=== PATIENT | female | born 1985 | race Caucasian/White ===

== ENCOUNTER 2019-05-13 16:30 | Outpatient (CLI) | payer MEDICARE, MEDICAID ==
--- NOTE | 2019-05-13 18:15 | RAD ---
SI JOINTS: 05/13/19 Three views. HISTORY: Sacroiliitis. SI joints appear open and symmetric. Nonspecific sclerosis is slightly more prominent on the iliac si de on the right. Sacrum is otherwise unremarkable. IMPRESSION: Nonspecific SI joint sclerosis. Slightly more prominent on the right. POS: [facility]
--- NOTE | 2019-05-13 18:18 | RAD ---
TWO VIEWS OF THE LUMBAR SPINE: 05/13/19 COMPARISON: None. HISTORY: Low back pain. FINDINGS: There is an exaggerated lumbar lordosis. There is facet hypertrophy at L4-5 and L5-S1. There is no a nterolisthesis or retrolisthesis. No acute fracture or evidence of dislocation. IMPRESSION: Exaggerated lumbar lordosis with lower lumbar spine facet hypertrophy. No acute fracture. POS: [facility]
--- NOTE | 2019-05-13 18:20 | RAD ---
SACRUM AND COCCYX: 05/13/19 Three views. HISTORY: Low back pain. Sacroiliitis. FINDINGS/IMPRESSION: Sacrum and coccyx appear intact with no focal osseous abnormality. Mild asymmetric sclerosis along the right SI joint. POS: [facility]
== END 2019-05-13 16:31 | disposition home or self-care (01) ==
LOC: BICRAD 16:30
PROVIDERS: ATTEND Internal Medicine
DX: M54.5 Low back pain (principal); M46.1 Sacroiliitis, not elsewhere classified; M40.56 Lordosis, unspecified, lumbar region; M53.3 Sacrococcygeal disorders, not elsewhere classified
CPT/HCPCS: 72100; 72202; 72220

== ENCOUNTER 2019-12-09 06:14 | Outpatient (CLI) | payer MEDICARE, MEDICAID, OTHER ==
[2019-12-09 13:30] LABS: BHCG - Serum Negative (NEGATIVE); Pregs Control Background? CLEAR/WHITE (CLR/WHITE); Pregs Control Bar Appear? YES (CONTROL BAR)
== END 2019-12-09 06:15 | disposition home or self-care (01) ==
LOC: LABBT 06:14
PROVIDERS: ATTEND Obstetrics & Gynecology
DX: Z01.812 Encounter for preprocedural laboratory examination (principal); R10.2 Pelvic and perineal pain; N93.9 Abnormal uterine and vaginal bleeding, unspecified; N94.6 Dysmenorrhea, unspecified; N92.0 Excessive and frequent menstruation with regular cycle
CPT/HCPCS: 84703

== ENCOUNTER 2019-12-13 07:53 | Day surgery (SDC) | payer MEDICARE, MEDICAID ==
[2019-12-09 11:51] VITALS: BMI 25.1
[2019-12-09 13:14] LABS: Hemoglobin 13.4 g/dL (12.0-16.0); Mean Corpuscular HGB CONC 33.9 g/dL (32.0-36.0); Mean Corpuscular Hemoglobin 36.7 pg (27.0-31.0); Mean Platelet Volume 8.5 fL (7.4-10.4); Platelet Count 158 thou/uL (130-400); RBC Distribution Width 12.5 % (11.5-14.5); Red Blood Cell (RBC) Count 3.66 mill/uL (4.20-5.40); White Blood Cell (WBC) Count 4.3 thou/uL (4.8-10.8)
[2019-12-09 13:27] LABS: Anion Gap 9 mmol/L (10-20); BUN (Urea Nitrogen) 10 mg/dL (7.0-18.7); Calc. Creatinine Clearance 0 mL/min (70-130); Calcium 9.5 mg/dL (7.8-10.44); Carbon Dioxide 29 mmol/L (22-29); Chloride 105 mmol/L (98-107); Estimated GFR-MDRD 89; Glucose 93 mg/dL (70-105); Potassium 4.3 mmol/L (3.5-5.1); Sodium 139 mmol/L (136-145)
[2019-12-09 18:37] LABS: SARS-CoV-2 MS2 Positive; SARS-CoV-2 N Gene Negative; SARS-CoV-2 S Gene Negative; SARS-CoV-2 orf1ab Negative
--- NOTE | 2019-12-13 08:01 | HP ---
HISTORY OF PRESENT ILLNESS: Ms. Pugh is a 34-year-old white female, G3, P3, with 3 vaginal deliveries, who has a history of an endometrial ablation with hysteroscopy procedure in 2017 for heavy menstrual bleeding. This was performed by Dr. Nieto at that time. She states she really has not had any improvement in her bleeding despite the ablation procedure. She was referred by her primary care physician, Dr. Mercer for increasing irregular menstrual bleeding, heavy flow and chronic pelvic pain that intensifies during her menstrual cycle. She has had a tubal ligation. 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 She has a seizure disorder secondary to the biopsy and the tumor, and she is on seizure medication for this with her last seizure being recorded in February 2018. She develops minimal left arm twitching as her focal seizure component. She is presently at [facility], being followed every 4 months with MRI and is currently on experimental medication. She also has a history of hypothyroidism and is followed by Endocrinology at [facility]. She was diagnosed with Minnie thyroiditis, then with Graves disease, and now has been stable on methimazole 5 mg daily. She currently lives with her parents and 3 children. PAST MEDICAL HISTORY: As per HPI, 1. Oligodendroglioma grade 2, diagnosed in September 2009. 2. Graves disease, diagnosed in 2018. 3. Minnie thyroiditis. 4. Anxiety, depression. 5. Allergic rhinitis. PAST SURGICAL HISTORY: 1. Tonsillectomy. 2. Tubal ligation. 3. D and C, hysteroscopy with endometrial ablation in 2016. SOCIAL HISTORY: No alcohol or tobacco use. No illicit drug use. CURRENT MEDICATIONS: 1. Keppra 750 mg extended-release 2 in the a.m. and 3 in the p.m. 2. Duloxetine 60 mg tablet daily. 3. Methimazole 5 mg tablet daily. 4. Clonazepam 1 mg p.o. p.r.n. 5. Fluticasone nasal spray as directed. 6. Her study drug is olaparib 150 mg 2 tablets b.i.d. PHYSICAL EXAMINATION: GENERAL: The patient is alert and oriented. CHEST: Clear to auscultation. HEART: Regular rate and rhythm. S1 and S2 heart sounds. No murmurs, rubs, or gallops. ABDOMEN: Soft, nontender, nondistended with no palpable masses. BREASTS: No breast masses, nipple discharge, or skin changes. PELVIC: Vulva and vagina had no lesions. Cervix had no lesions. Pap smear obtained in my office on October 25, 2019, was negative for HPV and normal cells were noted. Uterus was somewhat mildly enlarged and tender on palpation. Adnexa were nontender with no masses. She did have an endometrial biopsy at that visit. It sounded to 8 cm with 2 passes. The biopsy was benign with benign proliferative endometrial changes. DIAGNOSTIC IMAGING: The patient had an ultrasound of the pelvis in my office on 10/24, showing her uterus to measure 9 x 5.4 x 6 cm. Endometrial thickness was 9.23 mm. Normal-appearing left and right ovaries were noted. ASSESSMENT: This is a 34-year-old white female, G3, P3, with prior endometrial ablation with continued menorrhagia and painful menstrual cycles and chronic pelvic pain. Clinical findings are consistent with adenomyosis of the uterus. The patient also with history of oligodendroglioma of the brain, currently being managed well with experimental drug from [facility]. The patient is desiring definitive surgical therapy. PLAN: Plan is to proceed with robotic TLH with bilateral salpingectomy on December 12. Risks and benefits of procedure were discussed in detail. She is set for surgery. Job ID: [id number]
[2019-12-13] MEDS ORDERED: Gabapentin 300 MG CAP ONE (08:22)
[2019-12-13] MEDS ORDERED: Famotidine/PF 20 mg/2ml Vial ONE ×2 (08:22→09:48)
[2019-12-13] MEDS ORDERED: CeleCOXIB 100 MG CAP ONE (08:22)
[2019-12-13] MEDS ORDERED: SUGAMMADEX SODIUM 200 MG/2 ML VIAL ONE (09:48)
[2019-12-13] MEDS ORDERED: Fentanyl 100 MCG/2 ML VIAL ONE (09:48)
[2019-12-13] MEDS ORDERED: Meperidine HCl/PF 25 MG/ML VIAL ONE (09:48)
[2019-12-13] MEDS ORDERED: Bupivacaine PF 0.5% 30 ML VIAL ONE (09:49)
[2019-12-13] MEDS ORDERED: Lidocaine 1% w/Epinephrine 1:100K 20 ML VIAL ONE (09:49)
[2019-12-13] MEDS ORDERED: Midazolam HCl 2 mg/2 ml Vial ONE (09:56)
[2019-12-13] MEDS ORDERED: Metoclopramide HCl 10 MG/2 ML VIAL ONE (10:03)
[2019-12-13] MEDS ORDERED: PROPOFOL 200 MG/20 ML VIAL ONE (10:03)
[2019-12-13] MEDS ORDERED: Vecuronium 10 MG VIAL ONE (10:03)
[2019-12-13] MEDS ORDERED: Ondansetron PF 4 MG/2 ML Vial ONE (10:03)
[2019-12-13] MEDS ORDERED: Lidocaine 1% PF 5 ML VIAL ONE (10:03)
[2019-12-13] MEDS ORDERED: Promethazine HCl 25 MG/ML VIAL SLOW IVP PRN (11:49)
[2019-12-13] MEDS ORDERED: Promethazine HCl 25 MG/ML VIAL IM PRN ×2 (11:49→13:28)
[2019-12-13] MEDS ORDERED: Ondansetron HCl/PF 4 MG/2 ML Vial IVP PRN (11:49)
[2019-12-13] MEDS ORDERED: Bisacodyl 10 MG SUPP PR PRN (13:28)
[2019-12-13] MEDS ORDERED: Morphine 4 MG/ML VIAL SLOW IVP PRN (13:28)
[2019-12-13] MEDS ORDERED: traMADol HCl 50 MG TAB PO PRN ×2 (13:28)
[2019-12-13] MEDS ORDERED: Ondansetron PF 4 MG/2 ML Vial IVP PRN (13:28)
[2019-12-13] MEDS ORDERED: Zolpidem Tartrate 5 MG TAB PO PRN (13:28)
[2019-12-13] MEDS ORDERED: Simethicone Chewable 80 MG TAB PO PRN (13:28)
[2019-12-13] MEDS ORDERED: Acetaminophen 325 MG TAB PO PRN (13:28)
[2019-12-13] MEDS ORDERED: diphenhydrAMINE 25 MG CAP PO PRN (13:28)
[2019-12-13] MEDS: Ketorolac Tromethamine 30 MG/ML VIAL IVP SCH ×2 (14:34→20:36)
[2019-12-13] MEDS: Sodium Chloride 0.9% 1,000 ML IV SCH ×2 (14:35→21:07)
--- NOTE | 2019-12-13 19:36 | OP ---
DATE OF PROCEDURE: 12/13/2019 PREOPERATIVE DIAGNOSES: 1. A 34-year-old white female, G3, P3. 2. Prior endometrial ablation and tubal ligation with continued menorrhagia, pelvic pain, and dysmenorrhea. 3. Uterine myoma. 4. Suspect adenomyosis of the uterus. POSTOPERATIVE DIAGNOSES: 1. A 34-year-old white female, G3, P3. 2. Prior endometrial ablation and tubal ligation with continued menorrhagia, pelvic pain, and dysmenorrhea. 3. Uterine myoma. 4. Suspect adenomyosis of the uterus. PROCEDURES PERFORMED: Robotic total laparoscopic hysterectomy with bilateral salpingectomy. SALES [employer] MARKETING AGENT SURGEON: Rosa Nobles PA-C ANESTHESIA: General endotracheal. FINDINGS: 1. Normal bilateral ovaries and fallopian tubes with previous tubal ligation noted. 2. Boggy appearing uterus with a 1.5 x 1.5 subserosal uterine myoma noted. 3. Clear urine present in Hicks catheter postprocedure and bilateral ureteral peristalsis visualized postprocedure. ANTIBIOTICS: 2 g Ancef on-call to OR. PATHOLOGY: Uterus, cervix, and bilateral fallopian tubes. COUNTS: Correct x2. COMPLICATIONS: None. DISPOSITION: To recovery room, stable. DESCRIPTION OF PROCEDURE: The patient previously received informed consent in regard to surgery. She was taken back to the operating room, where she received a general endotracheal anesthetic agent without complications. She was placed in dorsal lithotomy position with Owen stirrups, prepped and draped in usual sterile fashion. Hicks catheter was placed. At this time, a side-arm speculum was placed in the vagina. Anterior lip of cervix was grasped with single-tooth tenaculum. The uterus sounded to 9 cm. A size 8 cm DK uterine manipulator with a 4.0 cervical cup was placed in usual fashion. Tenaculum and speculum were removed. Attention was then turned to the abdomen, where perspective trocar sites were infiltrated 0.5% Marcaine with epinephrine. A 12 mm supraumbilical incision was made. Veress needle was entered into the peritoneal cavity, and the patient's pressure was noted to be less than 5 mmHg. The abdomen was insufflated with the patient's pressure of 15, approximately 4.5 L of carbon dioxide gas. A size 12 mm trocar was then placed in the supraumbilical incision. Then, the laparoscope was introduced through the trocar sleeve confirming proper entry. At this time, the patient was placed in Trendelenburg position in a bilateral 8 mm operative approach. Trocars were placed under laparoscopic guidance along with an 11 mm right upper quadrant printing bindery assistant port. The robot was then docked. I then broke scrub and proceeded to carry out the surgery from the operative console while my assistants remained at the bedside. The uterus was elevated from the pelvis by my printing bindery assistant. The bilateral fallopian tubes were visualized with the previously mentioned findings. The left fimbria was grasped by my printing bindery assistant with atraumatic grasper. I then coagulated the nasal salpinx with bipolar fenestrated cautery, and then this was transected with monopolar scissors. The remaining tube was brought out through the right upper quadrant printing bindery assistant port. The left uterine ovarian ligament was coagulated and transected. Serial coagulation of broad ligament going down to the round ligament was coagulated and transected. The anterior leaf of the broad ligament was then entered creating the vesicouterine peritoneum. This was dissected off the cervix in a layering technique both sharply and bluntly. Uterine vessels were skeletonized, and they were coagulated in the internal cervical os region. This was carried out in likewise fashion on the patient's right side with the right fallopian tube was removed in similar fashion along with the right utero-ovarian ligament being coagulated and transected. Serial coagulation of the broad ligament hugging close to uterine specimen was carried out until the right round ligament was reached. It was coagulated and transected, and the anterior leaf of the broad ligament was entered. In a layering technique, dissecting the vesicouterine peritoneum past the cervical vaginal margin. The uterine vessels again on the right side were skeletonized. They were coagulated in the internal cervical os region. Then, performed the posterior colpotomy starting from the 6 o'clock to 3 o'clock position and 6 o'clock to 9 o'clock position with monopolar scissors. The anterior colpotomy was then completed from 12 o'clock to 3 o'clock and 12 o'clock to 9 o'clock, coagulated the uterine vessels meticulously during the colpotomy process. The specimen was then removed through the vaginal vault. I switched the monopolar scissors with a Alexandre needle courtesy driver. The vaginal cuff was coagulated of any remaining oozing areas with the bipolar fenestrated cautery. A Stratafix suture was then brought in, and full layer thickness closure at the vagina was carried out starting the right angle across the midline to the left angle back toward the midline. The suture was remaining suture was brought out through the right upper quadrant port. We irrigated the pedicle sites with suction irrigation. Hemostasis was confirmed. The robot was then undocked, and then proceeded to close the trocar site. A deep stitch of 0 Vicryl in [id number] stitch fashion was placed in the umbilical trocar site. The remainder of the trocar sites were closed with 4-0 Monocryl subcuticular fashion and Dermabond. The vaginal vault was checked and was noted to be hemostatic with sponge stick and clear urine was draining from the Hicks catheter. The patient was awakened from anesthesia transferred to recovery room in stable condition. Job ID: [id number]
[2019-12-13] MEDS ORDERED: levETIRAcetam 500 MG TAB PO SCH ×2 (21:00→22:00)
[2019-12-13] MEDS ORDERED: Lacosamide 50 mg Tablet PO SCH ×2 (21:00→22:00)
[2019-12-14] MEDS: Ketorolac Tromethamine 30 MG/ML VIAL IVP SCH (02:31)
[2019-12-14] MEDS: Sodium Chloride 0.9% 1,000 ML IV SCH ×2 (03:34→08:21)
[2019-12-14] MEDS: Ibuprofen 800 MG TAB PO SCH ×2 (03:35→08:18)
[2019-12-14 06:33] LABS: Hemoglobin 12.5 g/dL (12.0-16.0); Mean Corpuscular HGB CONC 34.1 g/dL (32.0-36.0); Mean Platelet Volume 8.8 fL (7.4-10.4); Platelet Count 139 thou/uL (130-400); RBC Distribution Width 12.5 % (11.5-14.5); Red Blood Cell (RBC) Count 3.37 mill/uL (4.20-5.40); White Blood Cell (WBC) Count 7.8 thou/uL (4.8-10.8)
[2019-12-14 07:57] VITALS: BP 114/57; TEMP 98.1
--- NOTE | 2019-12-14 08:29 | PDOC.EVN ---
Event Note - Event Note Event Note: Tolerating diet. Ambulating. Voiding. Minimal pain. o:T98.1 BP 114/57 P75 O2 sat 99% RA U/o 1900 ml ADOMEN is soft/non distended. Trochar sites c/d/i.. A/P: Post op day 1 from robotic tlh. Doing well. D/c home today. F/u pathology. RTC 2 and 6 weeks. tramadol rx sent in for pain.
[2019-12-14] MEDS ORDERED: levETIRAcetam 500 MG TAB PO SCH ×2 (09:00→21:00)
[2019-12-14] MEDS ORDERED: Methimazole 5 MG TAB PO SCH (09:00)
[2019-12-14] MEDS ORDERED: DULoxetine 60 MG CAP PO SCH (09:00)
[2019-12-14] MEDS ORDERED: Lacosamide 50 mg Tablet PO SCH ×2 (09:00→21:00)
--- NOTE | 2019-12-15 01:59 | DIS ---
DATE OF ADMISSION: 12/13/2019 DATE OF DISCHARGE: 12/14/2019 DIAGNOSES: Dysmenorrhea, menorrhagia, uterine fibroid, prior endometrial ablation, history of presumed adenomyosis of the uterus. PROCEDURES PERFORMED: Robotic total laparoscopic hysterectomy and bilateral salpingectomy. SUMMARY OF HOSPITAL COURSE: Ms. Pugh is a 34-year-old white female, who has a history of slow-growing malignant brain tumor astrocytoma, who has been managed with chemo and radiation for approximately 10 years. She has had a history of an endometrial ablation performed by Dr. Nieto back in 2017, for menorrhagia. She has had recurrence of heavy bleeding and chronic pelvic pain along with severe dysmenorrhea over the past year and have proceeded with definitive surgical therapy. She underwent a robotic TLH on 12/12. She has done well postoperatively. She is ambulating, voiding, and tolerating regular diet and has minimal pain, the morning postop day one. Vital signs are stable. Hematocrit is 36.6%. Pathology is pending at the time of discharge. She will be discharged home to resume her maintenance medications for seizure disorder due to brain tumor history and was also given tramadol 50 mg q.6 hours p.r.n. pain and suggested using [id number] ibuprofen and Tylenol for mild pain. Job ID: [id number]
== END 2019-12-14 13:40 | disposition home or self-care (01) ==
LOC: SDC 07:53 → 3SW 13:22 → SDC 12-14 13:40
PROVIDERS: ATTEND Obstetrics & Gynecology
PROC: 0UT94ZZ Resection of Uterus, Percutaneous Endoscopic Approach (ICD-10-PCS; principal; 2019-12-13)
PROC: 0UT74ZZ Resection of Bilateral Fallopian Tubes, Percutaneous Endoscopic Approach (ICD-10-PCS; 2019-12-13)
DX: D25.2 Subserosal leiomyoma of uterus (principal); N84.0 Polyp of corpus uteri; N72 Inflammatory disease of cervix uteri; C71.9 Malignant neoplasm of brain, unspecified; G40.802 Other epilepsy, not intractable, without status epilepticus; E06.3 Autoimmune thyroiditis; E05.00 Thyrotoxicosis with diffuse goiter without thyrotoxic crisis or storm; F41.9 Anxiety disorder, unspecified; F32.9 Major depressive disorder, single episode, unspecified; J30.9 Allergic rhinitis, unspecified; Z79.899 Other long term (current) drug therapy; Z88.5 Allergy status to narcotic agent; Z88.8 Allergy status to other drugs, medicaments and biological substances
CPT/HCPCS: 58573; 80048; 84443; 85027 ×2; 86850; 86900; 86901; 88307; U0003; 36415; 87635; J0690; J1885; J2001; J2175; J2250; J2405; J2704; J2765; J3010; S0020; S0028

== ENCOUNTER 2020-03-02 13:18 | Outpatient (CLI) | payer MEDICARE, MEDICAID ==
--- NOTE | 2020-03-02 14:48 | MMO ---
Bilateral MAMMO Bilat Diag [facility]. CLINICAL HISTORY: Patient is 34 years old and is seen for diagnostic exam,non-bloody discharge and pain in the left breast. The patient has the following family history of breast cancer: second cousin. The patient has a history of brain cancer. VIEWS: The views performed were: bilateral craniocaudal with tomosynthesis; bilateral mediolateral oblique with tomosynthesis; and bilateral mediolateral with tomosynthesis. This study has been interpreted with the assistance of computer-aided detection. MAMMOGRAM FINDINGS: The breasts are heterogeneously dense, which could obscure a lesion on mammography. There are no suspicious masses, suspicious calcifications, or new areas of architectural distortion. IMPRESSION: THERE IS NO MAMMOGRAPHIC EVIDENCE OF MALIGNANCY. A ROUTINE FOLLOW-UP MAMMOGRAM AT AGE 38 IS RECOMMENDED. THE RESULTS OF THIS EXAM WERE SENT TO THE PATIENT. ACR BI-RADS Category 1 - Negative MAMMOGRAPHY NOTE: 1. A negative mammogram report should not delay a biopsy if a dominant of clinically suspicious mass is present. 2. Approximately 10% to 15% of breast cancers are not detected by mammography. 3. Adenosis and dense breasts may obscure an underlying neoplasm. Reported by: KAYCEE GUERRERO MD Electonically Signed: [id number]
== END 2020-03-02 13:19 | disposition home or self-care (01) ==
LOC: BICMAMMO 13:18
PROVIDERS: ATTEND Internal Medicine
DX: N64.4 Mastodynia (principal)
CPT/HCPCS: 77066; G0279

== ENCOUNTER 2020-06-01 08:48 | Outpatient (CLI) | payer MEDICARE, MEDICAID ==
--- NOTE | 2020-06-01 10:18 | MRI ---
MRI BRAIN WITH AND WITHOUT CONTRAST: DATE: 06/01/2020 HISTORY: 34-year-old female for follow-up of brain tumor: Oligodendroglioma C 71.9 COMPARISON: 02/14/2015 TECHNIQUE: Multiplanar, multisequence MRI of the brain performed pre- and post-IV injection of gadolinium based contrast agent. FINDINGS: Again noted is the small right upper parietal bone craniotomy change near the vertex. Again noted are the multifocal small foci of magnetic susceptibility artifact intracranially deep to that involving brain parenchyma. Again noted is the linear tract from previous intracranial biopsy of alexiso r. The moderate size region of hyperintense signal abnormality on T2 WI and FLAIR involving the right up per frontal lobe love matter and white matter, including expansion of superior frontal gyrus and precentral gyrus, with associated local effacement of sulci, appears similar to prior study at the [facility]. However, now, there are new findings of more extensive hyperintense signal abnormalities in a patchy manner on T2 WI and FLAIR anterior and inferior to the original lesion, posterior and inferior to the original lesion involving right parietal centrum semiovale and subcortical white matter, and late ral and inferior to the original lesion, involving the right insula, right external capsule, and right extreme capsule; as well as patchy such signal abnormalities in the contralateral left paramedi an upper frontal deep cerebral white matter involving left superior frontal gyrus and left frontal centrum semiovale, greater than on 02/14/2015, but less severe than on the right cerebral hemisphere. Some of these appears slightly focal and slightly expansile. For example, the right insular lesion me asuring approximately 1 x 1 cm has T2 shine through on the DWI sequence and appears slightly expansile. It contains a tiny focus of central enhancement a few millimeters in size. This is suspici ous for a new focus of neoplastic deposit. No other regions of enhancement are noted. Ventricles are normal in size and configuration. No midline shift. No extra-axial fluid collection. N o true restricted diffusion. IMPRESSION: 1.) The original site of the infiltrative low-grade primary brain neoplasm in the right upper frontal cerebrum appears to be stable. 2) however, there is now a greater degree of extensive patchy and focal signal abnormalities elsewher e, right cerebral hemisphere more than left. These could represent infiltrative spread of primary brain neoplasm and/or postradiation changes. 3) This is especially suspicious for neoplastic involvement involving a small focal lesion in the rig ht insula which contains tiny focus of central enhancement.
[2020-06-01] MEDS ORDERED: Magnevist 469MG/ML 20 ML VIAL ONE (13:46)
== END 2020-06-01 08:49 | disposition home or self-care (01) ==
LOC: TBSIIMAG 08:48
PROVIDERS: ATTEND Psychiatry & Neurology Neurology
DX: C71.0 Malignant neoplasm of cerebrum, except lobes and ventricles (principal)
CPT/HCPCS: 70553; A9579

== ENCOUNTER 2020-08-04 15:43 | Emergency (ER) | payer MEDICARE, MEDICAID ==
--- NOTE | 2020-08-04 16:30 | CT ---
CT BRAIN WITHOUT CONTRAST: 08/04/20 HISTORY: Migraine headaches. Brain cancer diagnosed in 2009. COMPARISON: 03/01/2010. FINDINGS: Postop changes of right frontal craniotomy are again seen. There are postop changes in the adjacent r ight frontal lobe. Interval increase in the number of calcifications is seen in the right frontal lob e. No evidence of acute infarct, hemorrhage, midline shift or abnormal extra-axial fluid collections seen. No acute calvarial abnormalities are noted. The visualized paranasal sinuses and mastoid air cells ar e well aerated. IMPRESSION: No CT evidence of acute intracranial process. A contrast enhanced MRI would be helpful to evaluate fo r intracranial mass. POS: [facility]
[2020-08-04] MEDS ORDERED: Acetaminophen 500 MG TAB ONE (17:05)
[2020-08-04] MEDS ORDERED: Magnesium 2 GM/50 ML BAG (IN WATER) ONE (17:05)
[2020-08-04] MEDS ORDERED: Metoclopramide HCl 10 MG/2 ML VIAL ONE (17:05)
[2020-08-04] MEDS ORDERED: diphenhydrAMINE 50 MG/ML VIAL ONE (17:05)
[2020-08-04] MEDS ORDERED: Dexamethasone 4 mg/ml Vial ONE (17:39)
[2020-08-04 18:05] LABS: #Lymphocytes 0.4 thou/uL (1.20-3.40); #Monocytes 0.4 thou/uL (0.11-0.59); #Neutrophils 1.7 thou/uL (1.40-6.50); %Basophils 0.6 % (0.0-1.0); %Eosinophils 1.8 % (0.0-10.0); %Lymphocytes 14.2 % (21.0-51.0); %Monocytes 14.7 % (0.0-10.0); %Neutrophils 68.7 % (42.0-75.0); Hemoglobin 13.1 g/dL (12.0-16.0); Mean Corpuscular HGB CONC 35.8 g/dL (32.0-36.0); Mean Corpuscular Hemoglobin 37.5 pg (27.0-31.0); Mean Platelet Volume 7.7 fL (7.4-10.4); Platelet Count 64 thou/uL (130-400); RBC Distribution Width 11.1 % (11.5-14.5); Red Blood Cell (RBC) Count 3.49 mill/uL (4.20-5.40); White Blood Cell (WBC) Count 2.5 thou/uL (4.8-10.8)
[2020-08-04 18:16] LABS: MDiff Complete? YES; Macrocytosis SLIGHT = 6-15 cells (100X) (0-5/hpf); Platelet Morphology Comment Appears Decreased
== END 2020-08-04 19:08 | disposition home or self-care (01) ==
LOC: ERS 15:43
DX: R51.9 Headache, unspecified (principal)
CPT/HCPCS: 70450; 85025; 96365; 96366; 96368; 96375; J1100; J1200; J2765; J3475

== ENCOUNTER 2021-03-12 15:20 | Inpatient (IN) | payer MEDICARE, MEDICAID ==
[2021-03-12] MEDS ORDERED: Dexamethasone 10 MG/ML VIAL ONE (16:17)
[2021-03-12 16:22] LABS: #Eosinphils 0.1 thou/uL (0.0-0.7); #Lymphocytes 0.9 thou/uL (1.20-3.40); #Monocytes 0.2 thou/uL (0.11-0.59); #Neutrophils 1.2 thou/uL (1.40-6.50); %Basophils 1.5 % (0.0-1.0); %Eosinophils 5.1 % (0.0-10.0); %Lymphocytes 36.2 % (21.0-51.0); %Monocytes 9.6 % (0.0-10.0); %Neutrophils 47.7 % (42.0-75.0); Mean Corpuscular HGB CONC 34.9 g/dL (32.0-36.0); Mean Corpuscular Hemoglobin 35.7 pg (27.0-31.0); Mean Platelet Volume 7.8 fL (7.4-10.4); Platelet Count 127 thou/uL (130-400); RBC Distribution Width 10.7 % (11.5-14.5); Red Blood Cell (RBC) Count 3.93 mill/uL (4.20-5.40); White Blood Cell (WBC) Count 2.4 thou/uL (4.8-10.8)
[2021-03-12 16:27] LABS: ALT (SGPT) 17 U/L (8-55); AST (SGOT) 25 U/L (5-34); Albumin 4.7 g/dL (3.5-5.0); Alkaline Phosphatase 72 U/L (40-110); Anion Gap 11 mmol/L (10-20); BUN (Urea Nitrogen) 10 mg/dL (7.0-18.7); Bilirubin, Total 0.7 mg/dL (0.2-1.2); Calc. Creatinine Clearance 0 mL/min (70-130); Calcium 9.7 mg/dL (7.8-10.44); Carbon Dioxide 27 mmol/L (22-29); Chloride 106 mmol/L (98-107); Globulin 2.9 g/dL (2.4-3.5); Glucose 85 mg/dL (70-105); Potassium 3.8 mmol/L (3.5-5.1); Protein, Total 7.6 g/dL (6.0-8.3); Sodium 140 mmol/L (136-145)
[2021-03-12 17:41] LABS: Bilirubin Negative (Negative); Blood, Urine Negative (Negative); Clarity Clear (Clear); Glucose, Urine (Dipstick) Normal (Negative); Ketone, Urine Negative (Negative); Leukocyte Negative Leu/uL (Negative); Nitrite Negative (Negative); Protein, Urine (Dipstick) Negative (Neg-Trace); Specific Gravity, Urine 1.006 (1.002-1.036); Urobilinogen Normal mg/dL (Less than 2); pH, Urine 6.5 (5.0-9.0)
[2021-03-12] MEDS ORDERED: Ondansetron PF 4 MG/2 ML Vial IVP PRN (20:56)
[2021-03-12] MEDS ORDERED: Acetaminophen 325 MG TAB PO PRN (20:56)
[2021-03-12] MEDS ORDERED: Ondansetron ODT 4 MG TAB PO PRN (20:56)
[2021-03-12] MEDS ORDERED: Acetaminophen 650 MG Suppository PR PRN (20:56)
[2021-03-12] MEDS ORDERED: Dexamethasone 4 mg/ml Vial SLOW IVP SCH (21:15)
[2021-03-13] MEDS ORDERED: Dexamethasone 10 MG/ML VIAL ONE (00:03)
[2021-03-13] MEDS ORDERED: levETIRAcetam 500 MG TAB PO SCH (06:45)
[2021-03-13] MEDS ORDERED: Lacosamide 50 mg Tablet PO SCH (06:45)
[2021-03-13] MEDS ORDERED: Methotrexate Sodium 2.5 MG TAB PO SCH ×2 (06:45→10:45)
[2021-03-13 07:21] LABS: #Lymphocytes 0.5 thou/uL (1.20-3.40); #Monocytes 0.1 thou/uL (0.11-0.59); #Neutrophils 3.1 thou/uL (1.40-6.50); %Basophils 0.2 % (0.0-1.0); %Monocytes 1.8 % (0.0-10.0); %Neutrophils 84.9 % (42.0-75.0); Hemoglobin 14.2 g/dL (12.0-16.0); Mean Corpuscular HGB CONC 34.8 g/dL (32.0-36.0); Mean Corpuscular Hemoglobin 35.7 pg (27.0-31.0); Mean Platelet Volume 7.8 fL (7.4-10.4); Platelet Count 146 thou/uL (130-400); RBC Distribution Width 10.6 % (11.5-14.5); Red Blood Cell (RBC) Count 3.99 mill/uL (4.20-5.40); White Blood Cell (WBC) Count 3.7 thou/uL (4.8-10.8)
[2021-03-13 07:31] LABS: Anion Gap 11 mmol/L (10-20); BUN (Urea Nitrogen) 11 mg/dL (7.0-18.7); Calc. Creatinine Clearance 0 mL/min (70-130); Calcium 9.7 mg/dL (7.8-10.44); Carbon Dioxide 27 mmol/L (22-29); Chloride 105 mmol/L (98-107); Glucose 117 mg/dL (70-105); Potassium 4.1 mmol/L (3.5-5.1); Sodium 139 mmol/L (136-145)
[2021-03-13] MEDS ORDERED: Enoxaparin Sodium 40 MG/0.4 ML SYRINGE SC SCH (09:00)
[2021-03-13] MEDS ORDERED: clonazePAM 0.5 MG TAB ONE (09:07)
[2021-03-13] MEDS ORDERED: clonazePAM 0.5 MG TAB PO SCH (09:15)
[2021-03-13] MEDS ORDERED: Magnevist 469MG/ML 20 ML VIAL ONE (09:41)
[2021-03-13] MEDS: Dexamethasone 4 mg/ml Vial SLOW IVP SCH ×3 (11:04→18:16)
[2021-03-13 13:07] VITALS: BMI 22.7
[2021-03-13 17:10] VITALS: BP 106/64; TEMP 97.5
[2021-03-14 07:53] LABS: SARS-CoV-2 PCR NAA for Saliva Not Detected (NotDetected)
== END 2021-03-13 20:15 | disposition home or self-care (01) | DRG 54 ==
LOC: ERS 15:20 → ONC 18:37
PROVIDERS: ADMIT Internal Medicine; ATTEND Internal Medicine
DX: C71.1 Malignant neoplasm of frontal lobe (principal); G93.6 Cerebral edema; G43.909 Migraine, unspecified, not intractable, without status migrainosus; D72.818 Other decreased white blood cell count; E06.3 Autoimmune thyroiditis; Z20.822 Contact with and (suspected) exposure to COVID-19; Z88.5 Allergy status to narcotic agent; Z88.8 Allergy status to other drugs, medicaments and biological substances; Z90.710 Acquired absence of both cervix and uterus; Z98.890 Other specified postprocedural states; Z92.21 Personal history of antineoplastic chemotherapy; Z92.3 Personal history of irradiation
CPT/HCPCS: 36415; 70450; 70553; 80048; 80053; 81003; 85025; 94760; 96374; 96376; A9579; J1100; J8610; U0003; U0005

== ENCOUNTER 2021-05-22 00:10 | Inpatient (IN) | payer MEDICARE, MEDICAID ==
[2021-05-22] MEDS ORDERED: levETIRAcetam in NS 200 ML ONE (00:13)
[2021-05-22] MEDS ORDERED: Propofol 1,000 MG/100 ML VIAL IV ONE ×3 (00:46→11:04)
[2021-05-22 00:48] LABS: BHCG - Serum Negative (NEGATIVE); Pregs Control Background? CLEAR/WHITE (CLR/WHITE); Pregs Control Bar Appear? YES (CONTROL BAR)
[2021-05-22 00:49] LABS: ALT (SGPT) 38 U/L (8-55); AST (SGOT) 20 U/L (5-34); Albumin 3.8 g/dL (3.5-5.0); Alkaline Phosphatase 60 U/L (40-110); Anion Gap 10 mmol/L (10-20); BUN (Urea Nitrogen) 10 mg/dL (7.0-18.7); Bilirubin, Total 0.6 mg/dL (0.2-1.2); Calc. Creatinine Clearance 0 mL/min (70-130); Calcium 8.5 mg/dL (7.8-10.44); Carbon Dioxide 29 mmol/L (22-29); Chloride 102 mmol/L (98-107); Globulin 2.3 g/dL (2.4-3.5); Glucose 127 mg/dL (70-105); Potassium 3.5 mmol/L (3.5-5.1); Protein, Total 6.1 g/dL (6.0-8.3); Sodium 137 mmol/L (136-145)
[2021-05-22 00:50] LABS: #Eosinphils 0.1 thou/uL (0.0-0.7); #Lymphocytes 0.9 thou/uL (1.20-3.40); #Monocytes 0.5 thou/uL (0.11-0.59); #Neutrophils 2.3 thou/uL (1.40-6.50); %Basophils 0.9 % (0.0-1.0); %Eosinophils 1.7 % (0.0-10.0); %Lymphocytes 22.8 % (21.0-51.0); %Monocytes 12.4 % (0.0-10.0); %Neutrophils 62.2 % (42.0-75.0); Mean Corpuscular HGB CONC 36.3 g/dL (32.0-36.0); Mean Corpuscular Hemoglobin 38.8 pg (27.0-31.0); Mean Platelet Volume 6.8 fL (7.4-10.4); Platelet Count 102 thou/uL (130-400); Platelet Morphology Comment Appears Decreased; RBC Distribution Width 11.5 % (11.5-14.5); Red Blood Cell (RBC) Count 3.61 mill/uL (4.20-5.40); White Blood Cell (WBC) Count 3.7 thou/uL (4.8-10.8)
[2021-05-22] MEDS ORDERED: Lorazepam 2 MG/ML VIAL ONE ×2 (00:57→02:21)
[2021-05-22 01:26] LABS: Actual Bicarbonate (HCO3a) 25.9 mEq/L (22-28); Analyzer IN Cardio ER; Base Excess (BEa) 1.3 mEq/L (-2.0 to +3.0); CO2 Tension 40.8 mmHg (35.0-45.0); Calcium, Ionized (arterial) 1.12 mmol/L (1.12-1.30); Carboxyhemoglobin (COHb) 0.3 gm% (0.0-3.0); Hemoglobin (Hb) 13.5 g/dL (12.0-16.0); O2 Tension (PaO2), arterial 230.1 mmHg (80.0-100.0); Potassium - ABG Lab 3.71 mmol/L (3.70-5.30); pH, Arterial 7.42 (7.35-7.45)
[2021-05-22 01:47] LABS: Bacteria/HPF None Seen HPF (None Seen); Bilirubin Negative (Negative); Blood, Urine Trace (Negative); Clarity Clear (Clear); Glucose, Urine (Dipstick) Normal (Negative); Ketone, Urine Negative (Negative); Leukocyte Negative Leu/uL (Negative); Nitrite Negative (Negative); Protein, Urine (Dipstick) Negative (Neg-Trace); RBC/HPF 0-3 HPF (0-3); Specific Gravity, Urine 1.007 (1.002-1.036); Squamous Epithelial 0-3 HPF (0-3); Urobilinogen Normal mg/dL (Less than 2); WBC/HPF 0-3 HPF (0-3)
[2021-05-22] MEDS ORDERED: Midazolam HCl 2 mg/2 ml Vial ONE (02:07)
[2021-05-22 02:29] LABS: Puncture Site RRA
[2021-05-22 03:21] LABS: SARS-CoV-2 NAA Rapid Test Not Detected (NotDetected)
[2021-05-22] MEDS ORDERED: Fentanyl CADD 100 ML IV SCH ×2 (04:00→05:15)
[2021-05-22] MEDS ORDERED: Ondansetron ODT 4 MG TAB PO PRN (04:24)
[2021-05-22] MEDS ORDERED: Acetaminophen 650 MG Suppository PR PRN (04:24)
[2021-05-22] MEDS ORDERED: Ondansetron PF 4 MG/2 ML Vial IVP PRN (04:24)
[2021-05-22] MEDS ORDERED: Acetaminophen 325 MG TAB PO PRN (04:24)
[2021-05-22] MEDS ORDERED: Lorazepam 2 MG/ML VIAL SLOW IVP PRN ×2 (04:32→05:15)
[2021-05-22] MEDS ORDERED: Ventilator Sedation Protocol 1 EACH FS SCH (05:00)
[2021-05-22] MEDS ORDERED: DISCONTINUE PREVIOUS NARCOTIC PAIN MEDICATIONS AND BENZODIAZEPINES FS SCH (05:15)
[2021-05-22] MEDS ORDERED: Morphine 2 MG/ML VIAL SLOW IVP PRN (05:15)
[2021-05-22] MEDS ORDERED: Propofol BOLUS 1,000 MG/100 ML VIAL IV PRN (05:15)
[2021-05-22] MEDS ORDERED: Fentanyl BOLUS 250 ML IVPB PRN (05:15)
[2021-05-22 06:38] VITALS: BMI 24.5
[2021-05-22] MEDS: Propofol 1,000 MG/100 ML VIAL IV PRN ×2 (07:15→13:07)
[2021-05-22] MEDS ORDERED: Enoxaparin Sodium 40 MG/0.4 ML SYRINGE ONE (08:20)
[2021-05-22 09:00] LABS: Actual Bicarbonate (HCO3a) 21.1 mEq/L (22-28); Analyzer IN Cardio ER; Base Excess (BEa) 2.5 mEq/L (-2.0 to +3.0); Calcium, Ionized (arterial) 1.09 mmol/L (1.12-1.30); Carboxyhemoglobin (COHb) 0.3 gm% (0.0-3.0); Hemoglobin (Hb) 13.9 g/dL (12.0-16.0); O2 Tension (PaO2), arterial 198.6 mmHg (80.0-100.0); Potassium - ABG Lab 2.93 mmol/L (3.70-5.30)
[2021-05-22] MEDS ORDERED: Lacosamide 200 MG in Sodium Chloride 0.9% 50 ML IVPB SCH (09:00)
[2021-05-22] MEDS ORDERED: levETIRAcetam in NS 1,000 MG in Premix Bag 1 BAG IVPB SCH (09:00)
[2021-05-22] MEDS ORDERED: levETIRAcetam in NS 1,500 MG in Premix Bag 1 BAG IVPB SCH (09:00)
[2021-05-22] MEDS ORDERED: Enoxaparin Sodium 40 MG/0.4 ML SYRINGE SC SCH (09:00)
[2021-05-22 09:05] LABS: CO2 Tension 19.9 mmHg (35.0-45.0); pH, Arterial 7.64 (7.35-7.45)
[2021-05-22 09:06] LABS: ALV-art Gradient 61.725 mmHg (0-20); Puncture Site LRA
[2021-05-22] MEDS ORDERED: Succinylcholine 200 MG/10 ml SYRINGE FS ONE (10:13)
[2021-05-22] MEDS ORDERED: Dexamethasone 4 mg/ml Vial ONE ×2 (14:42→19:47)
[2021-05-22] MEDS: Dexamethasone 4 mg/ml Vial SLOW IVP SCH ×2 (14:43→19:57)
[2021-05-22 16:16] VITALS: BP 102/79
[2021-05-22] MEDS ORDERED: Dexamethasone 10 MG/ML VIAL ONE (19:43)
[2021-05-22] MEDS ORDERED: D5 1/2 NS w/20 mEq KCL 0 ML ONE (19:47)
[2021-05-22] MEDS ORDERED: SODIUM CHLORIDE 0.9% IVPB SCH (21:00)
[2021-05-22] MEDS ORDERED: LEVETIRACETAM IVPB SCH (21:00)
[2021-05-22 21:06] VITALS: TEMP 98.1
== END 2021-05-22 20:42 | disposition short-term general hospital (02) | DRG 100 ==
LOC: ERS 00:10 → ERHOLD 00:19
PROVIDERS: ADMIT Student in an Organized Health Care Education/Training Program; ATTEND Internal Medicine
PROC: 3E0333Z Introduction of Anti-inflammatory into Peripheral Vein, Percutaneous Approach (ICD-10-PCS; principal; 2021-05-22)
PROC: 4A10X4Z Monitoring of Central Nervous Electrical Activity, External Approach (ICD-10-PCS; 2021-05-22)
PROC: 5A1935Z Respiratory Ventilation, Less than 24 Consecutive Hours (ICD-10-PCS; 2021-05-22)
PROC: 0BH18EZ Insertion of Endotracheal Airway into Trachea, Via Natural or Artificial Opening Endoscopic (ICD-10-PCS; 2021-05-22)
DX: G40.901 Epilepsy, unspecified, not intractable, with status epilepticus (principal); J96.01 Acute respiratory failure with hypoxia; G93.6 Cerebral edema; G93.40 Encephalopathy, unspecified; C71.1 Malignant neoplasm of frontal lobe; G43.909 Migraine, unspecified, not intractable, without status migrainosus; E05.00 Thyrotoxicosis with diffuse goiter without thyrotoxic crisis or storm; F41.9 Anxiety disorder, unspecified; E06.3 Autoimmune thyroiditis; Z20.822 Contact with and (suspected) exposure to COVID-19; D72.819 Decreased white blood cell count, unspecified; Z90.710 Acquired absence of both cervix and uterus; Z88.5 Allergy status to narcotic agent; Z88.2 Allergy status to sulfonamides; Z79.899 Other long term (current) drug therapy
CPT/HCPCS: 31500; 36415; 36416; 36600; 51702; 70450; 71045; 80053; 81003; 81015; 82140; 82805; 83605; 84439; 84443; 84703; 85025; 93005; 94002; 94003; 94760; 95712; 95819; 95957; 96365; 96366; 96367; 96368; 96374; 96376; C9254; J1100; J1650; J1953; J2060; J2250; J2704; J3010; J3480; J3490; U0002

== ENCOUNTER 2021-09-25 18:53 | Inpatient (IN) | payer MEDICARE, MEDICAID ==
[2021-09-25] MEDS ORDERED: Diazepam 10 MG/2 ML SYRINGE ONE ×2 (18:58→19:31)
[2021-09-25] MEDS ORDERED: levETIRAcetam in NS 200 ML ONE (18:59)
[2021-09-25] MEDS ORDERED: Dextrose 50% Abboject 50 ML SYRINGE ONE (18:59)
[2021-09-25] MEDS ORDERED: Acetaminophen 650 MG Suppository ONE (19:02)
[2021-09-25] MEDS ORDERED: Fosphenytoin Sodium 500 mg/10 ml Vial ONE (19:17)
[2021-09-25 19:28] LABS: #Lymphocytes 0.8 thou/uL (1.20-3.40); #Monocytes 0.5 thou/uL (0.11-0.59); %Basophils 0.3 % (0.0-1.0); %Eosinophils 1.1 % (0.0-10.0); %Lymphocytes 24.1 % (21.0-51.0); %Monocytes 14.9 % (0.0-10.0); %Neutrophils 59.6 % (42.0-75.0); Hemoglobin 13.7 g/dL (12.0-16.0); Mean Corpuscular HGB CONC 33.4 g/dL (32.0-36.0); Mean Corpuscular Hemoglobin 35.4 pg (27.0-31.0); Mean Platelet Volume 6.5 fL (7.4-10.4); Platelet Count 142 thou/uL (130-400); RBC Distribution Width 11.8 % (11.5-14.5); Red Blood Cell (RBC) Count 3.87 mill/uL (4.20-5.40); White Blood Cell (WBC) Count 3.3 thou/uL (4.8-10.8)
[2021-09-25 19:39] LABS: ALT (SGPT) 29 U/L (8-55); AST (SGOT) 24 U/L (5-34); Albumin 3.8 g/dL (3.5-5.0); Alkaline Phosphatase 57 U/L (40-110); Anion Gap 15 mmol/L (10-20); BUN (Urea Nitrogen) 9 mg/dL (7.0-18.7); Bilirubin, Total 0.8 mg/dL (0.2-1.2); Calc. Creatinine Clearance 0 mL/min (70-130); Calcium 8.6 mg/dL (7.8-10.44); Carbon Dioxide 27 mmol/L (22-29); Chloride 103 mmol/L (98-107); Glucose 72 mg/dL (70-105); Potassium 4.5 mmol/L (3.5-5.1); Protein, Total 5.8 g/dL (6.0-8.3); Sodium 140 mmol/L (136-145)
[2021-09-25 19:40] LABS: Acetaminophen Less than 6.0 mcg/mL (10.0-30.0); Alcohol Less than 10 mg/dL (Less than 10); INR-International Normal Ratio 0.9; Prothrombin Time 12.2 sec (12.0-14.7); Salicylate Less than 8.0 mg/dL (15.0-30.0)
[2021-09-25 19:41] LABS: MDiff Complete? YES; Macrocytosis SLIGHT = 6-15 cells (100X) (0-5/hpf); PTT 23.9 sec (22.9-36.1); Platelet Morphology Comment Appears Adequate; Polychromasia SLIGHT = 2-3 cells (100X) (0-2/hpf)
[2021-09-25 19:43] LABS: Bilirubin Negative (Negative); Blood, Urine Negative (Negative); Clarity Clear (Clear); Glucose, Urine (Dipstick) 200 mg/dL (Negative); Ketone, Urine Negative (Negative); Leukocyte Negative Leu/uL (Negative); Nitrite Negative (Negative); Protein, Urine (Dipstick) Negative (Neg-Trace); Specific Gravity, Urine 1.009 (1.002-1.036); Urobilinogen Normal mg/dL (Less than 2); pH, Urine 6.5 (5.0-9.0)
[2021-09-25 19:54] LABS: Amphetamine Not Detected (NotDetected); Barbiturates Screen Not Detected (NotDetected); Benzodiazepine Screen Not Detected (NotDetected); Cocaine Metabolite Screen Not Detected (NotDetected); Methadone Not Detected (NotDetected); Methamphetamine Not Detected (NotDetected); Opiate Screen Not Detected (NotDetected); Oxycodone Screen Not Detected (NotDetected); Phencyclidine (PCP) Not Detected (NotDetected); THC/Cannabinoid Screen Not Detected (NotDetected); Tricyclic Screen Not Detected (NotDetected)
[2021-09-25] MEDS ORDERED: Fosphenytoin Sodium 1,500 MG in Sodium Chloride 0.9% 100 ML IVPB SCH (20:00)
[2021-09-25 20:20] LABS: SARS-CoV-2 NAA Rapid Test Not Detected (NotDetected)
[2021-09-25] MEDS ORDERED: Dexamethasone 10 MG/ML VIAL ONE (20:28)
[2021-09-25] MEDS ORDERED: Lorazepam 2 MG/ML VIAL SLOW IVP PRN ×2 (21:56→22:12)
[2021-09-25] MEDS ORDERED: Ondansetron PF 4 MG/2 ML Vial IVP PRN (22:00)
[2021-09-25] MEDS ORDERED: Acetaminophen 325 MG TAB PO PRN (22:00)
[2021-09-25] MEDS ORDERED: Ondansetron ODT 4 MG TAB SL PRN (22:00)
[2021-09-25] MEDS ORDERED: Sodium Chloride 0.9% 1,000 ML IV SCH (22:00)
[2021-09-25 22:18] LABS: Lactic Acid 1.8 mmol/L (0.5-2.2)
[2021-09-25 22:29] VITALS: BMI 28.1
[2021-09-25] MEDS: Dextrose 10% in Water 1,000 ML IV SCH (23:39)
[2021-09-26] MEDS: Dexamethasone 4 mg/ml Vial SLOW IVP SCH ×4 (00:17→14:14)
[2021-09-26 03:50] LABS: #Lymphocytes 0.3 thou/uL (1.20-3.40); #Monocytes 0.2 thou/uL (0.11-0.59); #Neutrophils 2.9 thou/uL (1.40-6.50); %Eosinophils 0.4 % (0.0-10.0); %Lymphocytes 8.4 % (21.0-51.0); %Monocytes 4.4 % (0.0-10.0); %Neutrophils 86.8 % (42.0-75.0); Hemoglobin 13.3 g/dL (12.0-16.0); Mean Corpuscular HGB CONC 35.1 g/dL (32.0-36.0); Mean Corpuscular Hemoglobin 36.3 pg (27.0-31.0); Mean Platelet Volume 6.5 fL (7.4-10.4); Platelet Count 125 thou/uL (130-400); RBC Distribution Width 11.7 % (11.5-14.5); Red Blood Cell (RBC) Count 3.67 mill/uL (4.20-5.40); White Blood Cell (WBC) Count 3.3 thou/uL (4.8-10.8)
[2021-09-26 04:04] LABS: Anion Gap 10 mmol/L (10-20); BUN (Urea Nitrogen) 6 mg/dL (7.0-18.7); Calc. Creatinine Clearance 152 mL/min (70-130); Calcium 8.3 mg/dL (7.8-10.44); Carbon Dioxide 23 mmol/L (22-29); Chloride 108 mmol/L (98-107); Glucose 202 mg/dL (70-105); Potassium 4.1 mmol/L (3.5-5.1); Sodium 137 mmol/L (136-145)
[2021-09-26] MEDS ORDERED: clonazePAM 0.5 MG TAB PO PRN (07:37)
[2021-09-26] MEDS ORDERED: levETIRAcetam in NS 1,000 MG in Premix Bag 1 BAG IVPB SCH (09:00)
[2021-09-26] MEDS ORDERED: Magnevist 469MG/ML 20 ML VIAL ONE (09:26)
[2021-09-26] MEDS ORDERED: Lacosamide 50 mg Tablet PO SCH (14:15)
[2021-09-26] MEDS ORDERED: levETIRAcetam 500 MG TAB PO SCH ×2 (14:15→21:00)
[2021-09-26] MEDS: Dexamethasone 1 MG TAB PO SCH ×2 (15:40→20:44)
[2021-09-26] MEDS: Dextrose 10% in Water 1,000 ML IV SCH (19:10)
[2021-09-26] MEDS: Lacosamide 50 mg Tablet PO SCH (20:46)
[2021-09-27] MEDS: Dexamethasone 1 MG TAB PO SCH ×2 (08:39→15:29)
[2021-09-27] MEDS: Lacosamide 50 mg Tablet PO SCH (08:39)
[2021-09-27] MEDS ORDERED: levETIRAcetam 500 MG TAB PO SCH (09:00)
[2021-09-27 12:07] VITALS: TEMP 98.6
[2021-09-27 15:33] VITALS: BP 113/80
== END 2021-09-27 16:20 | disposition home or self-care (01) | DRG 100 ==
LOC: ERS 18:53 → IMCU/EMU 21:00
PROVIDERS: ADMIT Student in an Organized Health Care Education/Training Program; ATTEND Internal Medicine
PROC: 4A10X4Z Monitoring of Central Nervous Electrical Activity, External Approach (ICD-10-PCS; principal; 2021-09-26)
DX: G40.901 Epilepsy, unspecified, not intractable, with status epilepticus (principal); G93.6 Cerebral edema; E05.00 Thyrotoxicosis with diffuse goiter without thyrotoxic crisis or storm; G43.909 Migraine, unspecified, not intractable, without status migrainosus; E06.3 Autoimmune thyroiditis; Z20.822 Contact with and (suspected) exposure to COVID-19; G93.9 Disorder of brain, unspecified; Z88.5 Allergy status to narcotic agent; Z88.8 Allergy status to other drugs, medicaments and biological substances; Z79.899 Other long term (current) drug therapy
CPT/HCPCS: 36415; 36416; 51701; 70450; 70553; 71045; 80048; 80053; 80306; 80307; 81003; 83605; 84484; 85025; 85610; 85730; 87040; 94760; 95712; 95819; 95957; 96365; 96375; A9579; J1100; J1953; J3360; J3490; J8540; Q2009; U0002

== ENCOUNTER 2022-01-15 14:31 | Inpatient (IN) | payer MEDICARE, MEDICAID ==
[~2022-01-15 14:31] MED LIST: Gadobenate Dimeglumine 529 MG/1 ML (20ML VIAL) ONE
[2022-01-15 15:06] LABS: #Eosinphils 0.1 thou/uL (0.0-0.7); #Lymphocytes 0.7 thou/uL (1.20-3.40); #Monocytes 0.6 thou/uL (0.11-0.59); #Neutrophils 3.9 thou/uL (1.40-6.50); %Basophils 0.6 % (0.0-1.0); %Lymphocytes 13.7 % (21.0-51.0); %Monocytes 11.6 % (0.0-10.0); %Neutrophils 72.1 % (42.0-75.0); Hemoglobin 13.1 g/dL (12.0-16.0); Mean Corpuscular HGB CONC 34.1 g/dL (32.0-36.0); Mean Corpuscular Hemoglobin 33.6 pg (27.0-31.0); Mean Corpuscular Volume 98.5 fL (78.0-98.0); Mean Platelet Volume 7.1 fL (7.4-10.4); Platelet Count 159 thou/uL (130-400); RBC Distribution Width 10.1 % (11.5-14.5); White Blood Cell (WBC) Count 5.3 thou/uL (4.8-10.8)
[2022-01-15 15:41] LABS: ALT (SGPT) 21 U/L (8-55); AST (SGOT) 16 U/L (5-34); Albumin 3.7 g/dL (3.5-5.0); Alkaline Phosphatase 86 U/L (40-110); Anion Gap 10 mmol/L (10-20); BUN (Urea Nitrogen) 14 mg/dL (7.0-18.7); Bilirubin, Total 0.5 mg/dL (0.2-1.2); Calc. Creatinine Clearance 0 mL/min (70-130); Calcium 8.9 mg/dL (7.8-10.44); Carbon Dioxide 29 mmol/L (22-29); Chloride 105 mmol/L (98-107); Globulin 2.5 g/dL (2.4-3.5); Glucose 96 mg/dL (70-105); Potassium 3.6 mmol/L (3.5-5.1); Protein, Total 6.2 g/dL (6.0-8.3); Sodium 140 mmol/L (136-145)
[2022-01-15] MEDS ORDERED: Metoclopramide HCl 10 MG/2 ML VIAL ONE (15:42)
[2022-01-15] MEDS ORDERED: diphenhydrAMINE 50 MG/ML VIAL ONE (15:45)
[2022-01-15] MEDS ORDERED: levETIRAcetam 500 MG/5 ML VIAL ONE (16:40)
[2022-01-15] MEDS ORDERED: manNITOL 20% 0 ML ONE (16:51)
[2022-01-15] MEDS ORDERED: Dexamethasone 4 mg/ml Vial ONE (16:52)
[2022-01-15] MEDS ORDERED: manNITOL 20% 500 ML IVPB SCH (17:15)
[2022-01-15] MEDS ORDERED: Lacosamide 200 MG in Sodium Chloride 0.9% 50 ML IVPB SCH (18:45)
[2022-01-15] MEDS ORDERED: Lorazepam 2 MG/ML VIAL ONE ×2 (19:35→20:29)
[2022-01-15 21:43] LABS: SARS-CoV-2 NAA Rapid Test Not Detected (NotDetected)
[2022-01-15 22:48] VITALS: BMI 24.4
[2022-01-15] MEDS ORDERED: Ondansetron PF 4 MG/2 ML Vial IVP PRN (23:38)
[2022-01-15] MEDS ORDERED: Acetaminophen 650 MG Suppository PR PRN (23:38)
[2022-01-15] MEDS ORDERED: Ondansetron ODT 4 MG TAB PO PRN (23:38)
[2022-01-16] MEDS: Dexamethasone 4 MG in Sodium Chloride 0.9% 50 ML IVPB SCH ×3 (00:53→13:32)
[2022-01-16] MEDS: Sodium Chloride 0.9% 1,000 ML IV SCH ×2 (01:22→22:22)
[2022-01-16 03:59] LABS: #Lymphocytes 0.3 thou/uL (1.20-3.40); #Monocytes 0.1 thou/uL (0.11-0.59); #Neutrophils 4.7 thou/uL (1.40-6.50); %Eosinophils 0.1 % (0.0-10.0); %Lymphocytes 6.4 % (21.0-51.0); %Monocytes 0.9 % (0.0-10.0); %Neutrophils 92.5 % (42.0-75.0); Hemoglobin 13.5 g/dL (12.0-16.0); Mean Corpuscular HGB CONC 34.8 g/dL (32.0-36.0); Mean Corpuscular Hemoglobin 34.5 pg (27.0-31.0); Mean Platelet Volume 6.9 fL (7.4-10.4); Platelet Count 155 thou/uL (130-400); RBC Distribution Width 10.1 % (11.5-14.5); Red Blood Cell (RBC) Count 3.92 mill/uL (4.20-5.40); White Blood Cell (WBC) Count 5.1 thou/uL (4.8-10.8)
[2022-01-16 04:22] LABS: Anion Gap 13 mmol/L (10-20); BUN (Urea Nitrogen) 13 mg/dL (7.0-18.7); Calc. Creatinine Clearance 161 mL/min (70-130); Calcium 9.3 mg/dL (7.8-10.44); Carbon Dioxide 24 mmol/L (22-29); Chloride 108 mmol/L (98-107); Glucose 127 mg/dL (70-105); Potassium 3.9 mmol/L (3.5-5.1); Sodium 141 mmol/L (136-145)
[2022-01-16] MEDS: Pantoprazole 40 MG VIAL IVP SCH (08:42)
[2022-01-16] MEDS ORDERED: Non-Formulary Item 1 EACH (Ondansetron Hcl [Zofran] 4 MG Tab) PO PRN (08:49)
[2022-01-16] MEDS ORDERED: Non-Formulary Item 1 EACH (Lacosamide [Vimpat] 200 MG Tablet) PO SCH (09:00)
[2022-01-16] MEDS ORDERED: LEVETIRACETAM 750 MG PO SCH (09:00)
[2022-01-16] MEDS ORDERED: Ondansetron ODT 8 MG TAB PO PRN (09:51)
[2022-01-16] MEDS: Acetaminophen 325 MG TAB PO PRN ×2 (13:13→19:51)
[2022-01-16] MEDS: Methimazole 5 MG TAB PO SCH (13:20)
[2022-01-16] MEDS: Multivit, Therapeutic 1 TAB PO SCH (13:29)
[2022-01-16] MEDS ORDERED: Dexamethasone 4 mg/ml Vial SLOW IVP SCH (18:00)
[2022-01-16] MEDS: Lacosamide 50 mg Tablet PO SCH (19:51)
[2022-01-16] MEDS ORDERED: LEVETIRACETAM PO SCH (21:00)
[2022-01-16] MEDS ORDERED: levETIRAcetam 500 MG TAB PO SCH (21:00)
[2022-01-17] MEDS ORDERED: DULoxetine 60 MG CAP PO SCH (09:00)
[2022-01-17] MEDS ORDERED: levETIRAcetam 500 MG TAB PO SCH (09:00)
[2022-01-17] MEDS: Pantoprazole 40 MG VIAL IVP SCH (09:42)
[2022-01-17] MEDS: Lacosamide 50 mg Tablet PO SCH (09:45)
[2022-01-17] MEDS: Multivit, Therapeutic 1 TAB PO SCH (09:45)
[2022-01-17] MEDS: Methimazole 5 MG TAB PO SCH (09:45)
[2022-01-17] MEDS ORDERED: Dexamethasone 4 mg/ml Vial SLOW IVP SCH ×2 (12:00→18:00)
[2022-01-17 12:17] VITALS: BP 113/81
[2022-01-17] MEDS: Acetaminophen 325 MG TAB PO PRN (12:33)
[2022-01-17 18:31] VITALS: TEMP 98.3
== END 2022-01-17 18:15 | disposition home health service (06) | DRG 54 ==
LOC: ERS 14:31 → CCU 18:18
PROVIDERS: ADMIT Internal Medicine; ATTEND Internal Medicine
DX: C71.1 Malignant neoplasm of frontal lobe (principal); G93.6 Cerebral edema; G93.5 Compression of brain; G93.49 Other encephalopathy; Z20.822 Contact with and (suspected) exposure to COVID-19; G43.909 Migraine, unspecified, not intractable, without status migrainosus; F41.9 Anxiety disorder, unspecified; E05.00 Thyrotoxicosis with diffuse goiter without thyrotoxic crisis or storm; E03.9 Hypothyroidism, unspecified; G40.909 Epilepsy, unspecified, not intractable, without status epilepticus; E06.3 Autoimmune thyroiditis; Z90.710 Acquired absence of both cervix and uterus; Z88.5 Allergy status to narcotic agent; Z88.8 Allergy status to other drugs, medicaments and biological substances; Z79.899 Other long term (current) drug therapy; Z79.52 Long term (current) use of systemic steroids; Z98.51 Tubal ligation status; Z90.89 Acquired absence of other organs
CPT/HCPCS: 36415; 70450; 70553; 80048; 80053; 85025; A9577; C9113; C9254; J1100; J1200; J1953; J2060; J2765; J7050; J7799; U0002

== ENCOUNTER 2022-02-27 09:00 | Outpatient (CLI) | payer MEDICARE, MEDICAID | END 2022-02-27 09:01 | disposition home or self-care (01) | LOC: SCSMRI 09:00 | PROVIDERS: ATTEND Internal Medicine Hematology & Oncology | DX: C71.3 Malignant neoplasm of parietal lobe (principal); G93.6 Cerebral edema; Z98.890 Other specified postprocedural states | CPT/HCPCS: 70553 ==

== ENCOUNTER 2022-03-21 09:42 | Inpatient (IN) | payer MEDICARE, MEDICAID ==
[2022-03-21] MEDS ORDERED: Succinylcholine 200 MG/10 ml SYRINGE FS ONE (09:45)
[2022-03-21] MEDS ORDERED: Midazolam HCl 5 mg/ml Vial ONE (09:51)
[2022-03-21] MEDS ORDERED: Propofol 1,000 MG/100 ML VIAL IV ONE (09:52)
[2022-03-21] MEDS ORDERED: levETIRAcetam 500 MG/5 ML VIAL ONE ×2 (09:52→13:29)
[2022-03-21 10:12] LABS: #Eosinphils 0.1 thou/uL (0.0-0.7); #Lymphocytes 1.7 thou/uL (1.20-3.40); #Monocytes 0.7 thou/uL (0.11-0.59); #Neutrophils 4.3 thou/uL (1.40-6.50); %Basophils 0.7 % (0.0-1.0); %Lymphocytes 24.7 % (21.0-51.0); %Monocytes 10.1 % (0.0-10.0); %Neutrophils 63.5 % (42.0-75.0); Hemoglobin 15.7 g/dL (12.0-16.0); Mean Corpuscular HGB CONC 33.1 g/dL (32.0-36.0); Mean Corpuscular Hemoglobin 33.4 pg (27.0-31.0); Mean Platelet Volume 6.7 fL (7.4-10.4); Platelet Count 173 thou/uL (130-400); RBC Distribution Width 13.2 % (11.5-14.5); White Blood Cell (WBC) Count 6.8 thou/uL (4.8-10.8)
[2022-03-21] MEDS ORDERED: DISCONTINUE PREVIOUS NARCOTIC PAIN MEDICATIONS AND BENZODIAZEPINES FS SCH ×2 (10:15→12:30)
[2022-03-21] MEDS ORDERED: Fentanyl CADD 100 ML IV SCH (10:15)
[2022-03-21 10:17] LABS: Bilirubin Negative (Negative); Blood, Urine Negative (Negative); Clarity Clear (Clear); Glucose, Urine (Dipstick) Normal (Negative); Ketone, Urine Negative (Negative); Leukocyte Negative Leu/uL (Negative); Nitrite Negative (Negative); Protein, Urine (Dipstick) 20 mg/dL (Neg-Trace); Specific Gravity, Urine 1.024 (1.002-1.036); pH, Urine 6.5 (5.0-9.0)
[2022-03-21 10:21] LABS: Pregnancy Test - Urine (BHCG) Negative (Negative); Pregu Control Background? CLEAR/WHITE (CLR/WHITE); Pregu Control Bar Appear? YES (CONTROL BAR); Specific Gravity 1.024 (1.002-1.036)
[2022-03-21 10:24] LABS: ALT (SGPT) 43 U/L (8-55); AST (SGOT) 23 U/L (5-34); Albumin 3.8 g/dL (3.5-5.0); Alkaline Phosphatase 51 U/L (40-110); Anion Gap 17 mmol/L (10-20); BUN (Urea Nitrogen) 13 mg/dL (7.0-18.7); Bilirubin, Total 0.7 mg/dL (0.2-1.2); Calc. Creatinine Clearance 0 mL/min (70-130); Calcium 8.5 mg/dL (7.8-10.44); Carbon Dioxide 23 mmol/L (22-29); Chloride 105 mmol/L (98-107); Estimated GFR 117; Globulin 2.3 g/dL (2.4-3.5); Glucose 72 mg/dL (70-105); Potassium 4.5 mmol/L (3.5-5.1); Protein, Total 6.1 g/dL (6.0-8.3); Sodium 140 mmol/L (136-145)
[2022-03-21 10:25] LABS: Acetaminophen Less than 10.0 mcg/mL (10.0-30.0); Alcohol Less than 10 mg/dL (Less than 10); Salicylate Less than 8.0 mg/dL (15.0-30.0)
[2022-03-21 10:25] LABS: Amphetamine Not Detected (NotDetected); Barbiturates Screen Not Detected (NotDetected); Benzodiazepine Screen Not Detected (NotDetected); Cocaine Metabolite Screen Not Detected (NotDetected); Methadone Not Detected (NotDetected); Methamphetamine Not Detected (NotDetected); Opiate Screen Not Detected (NotDetected); Oxycodone Screen Not Detected (NotDetected); Phencyclidine (PCP) Not Detected (NotDetected); THC/Cannabinoid Screen Not Detected (NotDetected); Tricyclic Screen Not Detected (NotDetected)
[2022-03-21 10:40] LABS: Actual Bicarbonate (HCO3a) 24.8 mEq/L (22-28); Analyzer IN Cardio ER; Base Excess (BEa) 1.3 mEq/L (-2.0 to +3.0); CO2 Tension 35.9 mmHg (35.0-45.0); Calcium, Ionized (arterial) 1.09 mmol/L (1.12-1.30); Carboxyhemoglobin (COHb) 0.1 gm% (0.0-3.0); Hemoglobin (Hb) 13.7 g/dL (12.0-16.0); Potassium - ABG Lab 3.92 mmol/L (3.70-5.30); pH, Arterial 7.46 (7.35-7.45)
[2022-03-21 10:43] LABS: ALV-art Gradient 95.025 mmHg (0-20); Puncture Site RBA
[2022-03-21 11:07] LABS: SARS-CoV-2 NAA Rapid Test Not Detected (NotDetected)
[2022-03-21] MEDS ORDERED: Electrolyte Replacement Protocol 1 EACH FS SCH (12:08)
[2022-03-21] MEDS ORDERED: Ventilator Sedation Protocol 1 EACH FS SCH (12:15)
[2022-03-21] MEDS ORDERED: Midazolam HCl 2 mg/2 ml Vial SLOW IVP SCH (12:15)
[2022-03-21] MEDS ORDERED: Propofol 1,000 MG/100 ML VIAL IV PRN (12:30)
[2022-03-21] MEDS ORDERED: Morphine 4 MG/ML VIAL SLOW IVP PRN (12:30)
[2022-03-21] MEDS ORDERED: Fentanyl BOLUS 250 ML IVPB PRN (12:30)
[2022-03-21] MEDS ORDERED: Propofol BOLUS 1,000 MG/100 ML VIAL IV PRN (12:30)
[2022-03-21 13:20] LABS: Lactic Acid 2.8 mmol/L (0.5-2.2)
[2022-03-21] MEDS ORDERED: Midazolam HCl 2 mg/2 ml Vial SLOW IVP PRN ×2 (14:28→14:45)
[2022-03-21] MEDS: Sodium Chloride 0.9% 1,000 ML IV SCH ×2 (14:33→22:44)
[2022-03-21] MEDS: Fosphenytoin Sodium 100 MG in Sodium Chloride 0.9% 50 ML IVPB SCH ×2 (14:34→20:29)
[2022-03-21] MEDS: Dexamethasone 4 mg/ml Vial SLOW IVP SCH ×2 (15:34→22:44)
[2022-03-21] MEDS: Lacosamide 200 MG in Sodium Chloride 0.9% 50 ML IVPB SCH (20:30)
[2022-03-21] MEDS: levETIRAcetam 500 MG/5 ML VIAL SLOW IVP SCH (20:32)
[2022-03-21] MEDS: Pantoprazole 40 MG VIAL IVP SCH (20:33)
[2022-03-21] MEDS ORDERED: Lacosamide 50 MG in Sodium Chloride 0.9% 50 ML IVPB SCH (21:00)
[2022-03-21] MEDS ORDERED: levETIRAcetam in NS 1,500 MG in Premix Bag 1 BAG IVPB SCH (21:00)
[2022-03-22] MEDS: Fosphenytoin Sodium 100 MG in Sodium Chloride 0.9% 50 ML IVPB SCH ×4 (02:07→20:48)
[2022-03-22] MEDS: Dexamethasone 4 mg/ml Vial SLOW IVP SCH ×3 (05:57→22:41)
[2022-03-22 06:57] LABS: Actual Bicarbonate (HCO3a) 24.8 mEq/L (22-28); Base Excess (BEa) 1.2 mEq/L (-2.0 to +3.0); CO2 Tension 36.3 mmHg (35.0-45.0); Calcium, Ionized (arterial) 1.16 mmol/L (1.12-1.30); Carboxyhemoglobin (COHb) 0.1 gm% (0.0-3.0); Hemoglobin (Hb) 13.1 g/dL (12.0-16.0); O2 Tension (PaO2), arterial 123.7 mmHg (80.0-100.0); Potassium - ABG Lab 4.14 mmol/L (3.70-5.30); pH, Arterial 7.45 (7.35-7.45)
[2022-03-22 07:30] LABS: ALT (SGPT) 28 U/L (8-55); AST (SGOT) 14 U/L (5-34); Alkaline Phosphatase 39 U/L (40-110); Anion Gap 10 mmol/L (10-20); BUN (Urea Nitrogen) 9 mg/dL (7.0-18.7); Bilirubin, Total 0.6 mg/dL (0.2-1.2); Calc. Creatinine Clearance 185 mL/min (70-130); Calcium 8.2 mg/dL (7.8-10.44); Carbon Dioxide 27 mmol/L (22-29); Chloride 108 mmol/L (98-107); Estimated GFR 120; Globulin 1.9 g/dL (2.4-3.5); Glucose 111 mg/dL (70-105); Potassium 4.2 mmol/L (3.5-5.1); Protein, Total 4.9 g/dL (6.0-8.3); Sodium 141 mmol/L (136-145)
[2022-03-22 07:49] LABS: Free T4 (Free Thyroxine) 0.69 ng/dL (0.70-1.48); Thyroid Stimulating Hormone 0.1367 uIU/mL (0.35-4.94)
[2022-03-22 07:52] LABS: ALV-art Gradient 44.825 mmHg (0-20); Puncture Site LRA
[2022-03-22 08:11] LABS: #Lymphocytes 0.3 thou/uL (1.20-3.40); #Monocytes 0.3 thou/uL (0.11-0.59); #Neutrophils 3.7 thou/uL (1.40-6.50); %Basophils 0.2 % (0.0-1.0); %Eosinophils 0.4 % (0.0-10.0); %Lymphocytes 7.6 % (21.0-51.0); %Monocytes 7.6 % (0.0-10.0); %Neutrophils 84.2 % (42.0-75.0); Hemoglobin 13.5 g/dL (12.0-16.0); Mean Corpuscular HGB CONC 34.8 g/dL (32.0-36.0); Mean Corpuscular Hemoglobin 34.8 pg (27.0-31.0); Mean Platelet Volume 6.7 fL (7.4-10.4); Platelet Count 102 thou/uL (130-400); RBC Distribution Width 12.9 % (11.5-14.5); Red Blood Cell (RBC) Count 3.88 mill/uL (4.20-5.40); White Blood Cell (WBC) Count 4.4 thou/uL (4.8-10.8)
[2022-03-22 08:12] LABS: Band 17 % (5-11); Lymphocytes 6 % (21-51); MDiff Complete? YES; Monocytes 5 % (0-10); Neutrophil 72 % (42-75); Platelet Morphology Comment Appears Decreased; Polychromasia SLIGHT = 2-3 cells (100X) (0-2/hpf)
[2022-03-22] MEDS: Sodium Chloride 0.9% 1,000 ML IV SCH ×2 (08:37→18:30)
[2022-03-22] MEDS: Multivit, Therapeutic 1 TAB PO SCH (08:39)
[2022-03-22] MEDS: Pantoprazole 40 MG VIAL IVP SCH ×2 (08:39→20:47)
[2022-03-22] MEDS: DULoxetine 60 MG CAP PO SCH (08:40)
[2022-03-22] MEDS: levETIRAcetam 500 MG/5 ML VIAL SLOW IVP SCH ×2 (08:40→20:47)
[2022-03-22] MEDS ORDERED: Methimazole 5 MG TAB PO SCH (09:00)
[2022-03-22] MEDS ORDERED: Prevnar 13-Val Conj/PF 0.5 ML SYRINGE IM ONE (09:00)
[2022-03-22] MEDS ORDERED: Pantoprazole 40 MG VIAL IVP SCH (09:00)
[2022-03-22] MEDS: Lacosamide 200 MG in Sodium Chloride 0.9% 50 ML IVPB SCH ×2 (10:58→20:47)
[2022-03-23] MEDS: Fosphenytoin Sodium 100 MG in Sodium Chloride 0.9% 50 ML IVPB SCH ×4 (02:11→23:33)
[2022-03-23] MEDS: Sodium Chloride 0.9% 1,000 ML IV SCH ×2 (04:59→15:42)
[2022-03-23] MEDS: Dexamethasone 4 mg/ml Vial SLOW IVP SCH ×3 (05:26→21:50)
[2022-03-23] MEDS: Levothyroxine Sodium 25 MCG TAB PO SCH (06:20)
[2022-03-23 06:56] LABS: #Lymphocytes 0.5 thou/uL (1.20-3.40); #Monocytes 0.2 thou/uL (0.11-0.59); #Neutrophils 2.6 thou/uL (1.40-6.50); %Basophils 0.4 % (0.0-1.0); %Eosinophils 1.5 % (0.0-10.0); %Lymphocytes 14.9 % (21.0-51.0); %Monocytes 6.7 % (0.0-10.0); %Neutrophils 76.6 % (42.0-75.0); Mean Corpuscular Hemoglobin 34.1 pg (27.0-31.0); Mean Corpuscular Volume 97.5 fL (78.0-98.0); Mean Platelet Volume 6.7 fL (7.4-10.4); Platelet Count 100 thou/uL (130-400); RBC Distribution Width 12.9 % (11.5-14.5); White Blood Cell (WBC) Count 3.4 thou/uL (4.8-10.8)
[2022-03-23 07:11] LABS: Anion Gap 13 mmol/L (10-20); BUN (Urea Nitrogen) 9 mg/dL (7.0-18.7); Calc. Creatinine Clearance 175 mL/min (70-130); Calcium 8.5 mg/dL (7.8-10.44); Carbon Dioxide 25 mmol/L (22-29); Chloride 107 mmol/L (98-107); Estimated GFR 118; Glucose 90 mg/dL (70-105); Potassium 4.1 mmol/L (3.5-5.1); Sodium 141 mmol/L (136-145)
[2022-03-23] MEDS ORDERED: Magnesium 2 GM/50 ML(in water) 2 GM in Premix Bag 1 BAG IVPB SCH (07:30)
[2022-03-23] MEDS: Multivit, Therapeutic 1 TAB PO SCH (09:26)
[2022-03-23] MEDS: DULoxetine 60 MG CAP PO SCH (09:26)
[2022-03-23] MEDS: Pantoprazole 40 MG VIAL IVP SCH ×2 (09:26→21:50)
[2022-03-23] MEDS: levETIRAcetam 500 MG/5 ML VIAL SLOW IVP SCH ×2 (09:49→21:50)
[2022-03-23] MEDS: Lacosamide 200 MG in Sodium Chloride 0.9% 50 ML IVPB SCH ×2 (10:40→21:49)
[2022-03-24] MEDS: Fosphenytoin Sodium 100 MG in Sodium Chloride 0.9% 50 ML IVPB SCH ×2 (02:25→09:27)
[2022-03-24 05:31] LABS: Anion Gap 13 mmol/L (10-20); BUN (Urea Nitrogen) 11 mg/dL (7.0-18.7); Calc. Creatinine Clearance 198 mL/min (70-130); Calcium 8.1 mg/dL (7.8-10.44); Carbon Dioxide 25 mmol/L (22-29); Chloride 108 mmol/L (98-107); Estimated GFR 122; Glucose 110 mg/dL (70-105); Magnesium 2.2 mg/dL (1.6-2.6); Sodium 142 mmol/L (136-145)
[2022-03-24 05:39] LABS: #Eosinphils 0.1 thou/uL (0.0-0.7); #Lymphocytes 0.5 thou/uL (1.20-3.40); #Monocytes 0.3 thou/uL (0.11-0.59); #Neutrophils 2.9 thou/uL (1.40-6.50); %Basophils 1.2 % (0.0-1.0); %Eosinophils 1.5 % (0.0-10.0); %Monocytes 7.8 % (0.0-10.0); %Neutrophils 76.5 % (42.0-75.0); Hemoglobin 13.8 g/dL (12.0-16.0); Mean Corpuscular HGB CONC 36.7 g/dL (32.0-36.0); Mean Corpuscular Hemoglobin 35.9 pg (27.0-31.0); Mean Corpuscular Volume 97.8 fL (78.0-98.0); Platelet Count 98 thou/uL (130-400); RBC Distribution Width 12.7 % (11.5-14.5); Red Blood Cell (RBC) Count 3.85 mill/uL (4.20-5.40); White Blood Cell (WBC) Count 3.8 thou/uL (4.8-10.8)
[2022-03-24 05:40] LABS: Platelet Morphology Comment Appears Decreased
[2022-03-24] MEDS: Levothyroxine Sodium 25 MCG TAB PO SCH (05:54)
[2022-03-24] MEDS: Dexamethasone 4 mg/ml Vial SLOW IVP SCH ×3 (05:54→20:53)
[2022-03-24] MEDS: Sodium Chloride 0.9% 1,000 ML IV SCH (07:38)
[2022-03-24] MEDS: levETIRAcetam 500 MG TAB PO SCH ×2 (09:25→20:50)
[2022-03-24] MEDS: DULoxetine 60 MG CAP PO SCH (09:26)
[2022-03-24] MEDS: Multivit, Therapeutic 1 TAB PO SCH (09:26)
[2022-03-24] MEDS: Pantoprazole 40 MG VIAL IVP SCH (09:40)
[2022-03-24] MEDS: Lacosamide 200 MG in Sodium Chloride 0.9% 50 ML IVPB SCH (09:40)
[2022-03-24] MEDS: Lacosamide 50 mg Tablet PO SCH ×2 (10:24→20:53)
[2022-03-24] MEDS ORDERED: Lacosamide 50 mg Tablet PO SCH (21:00)
[2022-03-25 05:40] LABS: #Eosinphils 0.1 thou/uL (0.0-0.7); #Lymphocytes 0.9 thou/uL (1.20-3.40); #Monocytes 0.4 thou/uL (0.11-0.59); #Neutrophils 2.6 thou/uL (1.40-6.50); %Basophils 0.2 % (0.0-1.0); %Eosinophils 2.3 % (0.0-10.0); %Lymphocytes 21.5 % (21.0-51.0); %Monocytes 9.9 % (0.0-10.0); %Neutrophils 66.1 % (42.0-75.0); Hemoglobin 12.9 g/dL (12.0-16.0); Mean Corpuscular HGB CONC 34.8 g/dL (32.0-36.0); Mean Corpuscular Hemoglobin 34.1 pg (27.0-31.0); Mean Platelet Volume 7.1 fL (7.4-10.4); Platelet Count 103 thou/uL (130-400); Red Blood Cell (RBC) Count 3.79 mill/uL (4.20-5.40); White Blood Cell (WBC) Count 3.9 thou/uL (4.8-10.8)
[2022-03-25] MEDS: Levothyroxine Sodium 25 MCG TAB PO SCH (05:54)
[2022-03-25] MEDS: Dexamethasone 4 mg/ml Vial SLOW IVP SCH ×3 (05:54→20:43)
[2022-03-25 06:02] LABS: Anion Gap 13 mmol/L (10-20); BUN (Urea Nitrogen) 15 mg/dL (7.0-18.7); Calc. Creatinine Clearance 206 mL/min (70-130); Calcium 8.2 mg/dL (7.8-10.44); Carbon Dioxide 26 mmol/L (22-29); Chloride 107 mmol/L (98-107); Estimated GFR 123; Glucose 91 mg/dL (70-105); Potassium 3.9 mmol/L (3.5-5.1); Sodium 142 mmol/L (136-145)
[2022-03-25] MEDS: levETIRAcetam 500 MG TAB PO SCH ×2 (08:19→20:31)
[2022-03-25] MEDS: Multivit, Therapeutic 1 TAB PO SCH (08:20)
[2022-03-25] MEDS: DULoxetine 60 MG CAP PO SCH (08:20)
[2022-03-25] MEDS: Lacosamide 50 mg Tablet PO SCH ×2 (08:20→20:30)
[2022-03-25] MEDS ORDERED: Magnesium 2 GM/50 ML(in water) 2 GM in Premix Bag 1 BAG IVPB SCH (09:00)
[2022-03-25] MEDS ORDERED: Lacosamide 50 mg Tablet PO SCH ×2 (09:30)
[2022-03-25] MEDS ORDERED: clonazePAM 0.5 MG TAB PO SCH (15:30)
[2022-03-26 05:25] LABS: #Eosinphils 0.1 thou/uL (0.0-0.7); #Monocytes 0.5 thou/uL (0.11-0.59); #Neutrophils 2.5 thou/uL (1.40-6.50); %Basophils 0.7 % (0.0-1.0); %Eosinophils 1.5 % (0.0-10.0); %Lymphocytes 24.6 % (21.0-51.0); %Monocytes 11.3 % (0.0-10.0); Mean Corpuscular HGB CONC 34.5 g/dL (32.0-36.0); Mean Corpuscular Hemoglobin 33.8 pg (27.0-31.0); Mean Platelet Volume 6.9 fL (7.4-10.4); Platelet Count 108 thou/uL (130-400); RBC Distribution Width 13.2 % (11.5-14.5); Red Blood Cell (RBC) Count 3.83 mill/uL (4.20-5.40)
[2022-03-26 05:36] LABS: Anion Gap 11 mmol/L (10-20); BUN (Urea Nitrogen) 8 mg/dL (7.0-18.7); Calc. Creatinine Clearance 187 mL/min (70-130); Calcium 8.3 mg/dL (7.8-10.44); Carbon Dioxide 29 mmol/L (22-29); Chloride 107 mmol/L (98-107); Estimated GFR 120; Glucose 96 mg/dL (70-105); Magnesium 2.1 mg/dL (1.6-2.6); Potassium 4.1 mmol/L (3.5-5.1); Sodium 143 mmol/L (136-145)
[2022-03-26] MEDS: Levothyroxine Sodium 25 MCG TAB PO SCH (06:15)
[2022-03-26] MEDS: Dexamethasone 4 mg/ml Vial SLOW IVP SCH (06:15)
[2022-03-26] MEDS ORDERED: Amlodipine 5 MG TAB PO SCH (09:00)
[2022-03-26] MEDS: levETIRAcetam 500 MG TAB PO SCH (09:24)
[2022-03-26] MEDS: Multivit, Therapeutic 1 TAB PO SCH (09:25)
[2022-03-26] MEDS: DULoxetine 60 MG CAP PO SCH (09:25)
[2022-03-26] MEDS: Lacosamide 50 mg Tablet PO SCH (09:25)
[2022-03-26] MEDS ORDERED: Acetaminophen 325 MG TAB PO SCH (11:45)
[2022-03-26 12:39] VITALS: BMI 30.4
[2022-03-26 16:15] VITALS: BP 116/95; TEMP 98.1
== END 2022-03-26 16:19 | disposition home health service (06) | DRG 100 ==
LOC: ERS 09:42 → CCU 13:08 → NEURO 03-23 16:40
PROVIDERS: ADMIT Internal Medicine; ATTEND Internal Medicine
PROC: 5A1945Z Respiratory Ventilation, 24-96 Consecutive Hours (ICD-10-PCS; principal; 2022-03-21)
PROC: 0BH17EZ Insertion of Endotracheal Airway into Trachea, Via Natural or Artificial Opening (ICD-10-PCS; 2022-03-21)
PROC: 0D9670Z Drainage of Stomach with Drainage Device, Via Natural or Artificial Opening (ICD-10-PCS; 2022-03-21)
DX: G40.901 Epilepsy, unspecified, not intractable, with status epilepticus (principal); G93.6 Cerebral edema; J96.01 Acute respiratory failure with hypoxia; C71.9 Malignant neoplasm of brain, unspecified; Z20.822 Contact with and (suspected) exposure to COVID-19; E03.8 Other specified hypothyroidism; F41.9 Anxiety disorder, unspecified; E05.90 Thyrotoxicosis, unspecified without thyrotoxic crisis or storm; E06.3 Autoimmune thyroiditis; G43.909 Migraine, unspecified, not intractable, without status migrainosus; N80.0 Endometriosis of uterus; Z78.1 Physical restraint status; Z28.21 Immunization not carried out because of patient refusal; Z88.5 Allergy status to narcotic agent; Z88.8 Allergy status to other drugs, medicaments and biological substances; Z90.89 Acquired absence of other organs; Z90.710 Acquired absence of both cervix and uterus; Z79.899 Other long term (current) drug therapy; Z79.51 Long term (current) use of inhaled steroids; Z83.49 Family history of other endocrine, nutritional and metabolic diseases; Z82.49 Family history of ischemic heart disease and other diseases of the circulatory system; Z98.890 Other specified postprocedural states; Z79.02 Long term (current) use of antithrombotics/antiplatelets
CPT/HCPCS: 31500; 36415; 36600; 51702; 70450; 71045; 80048; 80053; 80306; 80307; 81003; 81025; 82805; 83605; 83735; 84146; 84439; 84443; 84481; 85025; 93005; 93010; 94002; 94003; 94760; 95712; 95816; 95819; 95957; 96365; 96366; 96375; 96376; C9113; C9254; J1100; J1953; J2250; J2704; J3010; J3475; J7050; Q2009; U0002

== ENCOUNTER 2022-04-16 08:46 | Outpatient (CLI) | payer MEDICARE, MEDICAID ==
[2022-04-16] MEDS ORDERED: Magnevist 469MG/ML 20 ML VIAL ONE (09:11)
== END 2022-04-16 08:47 | disposition home or self-care (01) ==
LOC: TBSIIMAG 08:46
PROVIDERS: ATTEND Internal Medicine Hematology & Oncology
DX: C71.3 Malignant neoplasm of parietal lobe (principal); R22.0 Localized swelling, mass and lump, head; G93.9 Disorder of brain, unspecified
CPT/HCPCS: 70553; A9579

== ENCOUNTER 2022-07-02 13:03 | Outpatient (CLI) | payer MEDICARE, MEDICAID ==
[~2022-07-02 13:03] MED LIST changes: -Gadobenate Dimeglumine 529 MG/1 ML (20ML VIAL) ONE; +Magnevist 469MG/ML 20 ML VIAL ONE
== END 2022-07-02 13:04 | disposition home or self-care (01) ==
LOC: TBSIIMAG 13:03
PROVIDERS: ATTEND Internal Medicine Hematology & Oncology
DX: C71.3 Malignant neoplasm of parietal lobe (principal)
CPT/HCPCS: 70553